=== PATIENT | male | born 1940 | race Two or more races ===

== ENCOUNTER 2017-07-16 15:54 | Inpatient (IN) | payer MEDICARE, BC ==
[~2017-07-16] VITALS: Ht 172.7 cm; Wt 89.4 kg
[2017-07-16] MEDS ORDERED: methylPREDNISolone SOD SUCC 125 MG/2ML VIAL ONE (16:14)
[2017-07-16] MEDS ORDERED: ALBUTEROL FS 2.5 MG/3 ML VIAL.NEB ONE (16:15)
[2017-07-16] MEDS ORDERED: IPRATROPIUM NEB FS 0.5 MG/2.5 ML AMPUL.NEB ONE (16:15)
--- NOTE | 2017-07-16 16:23 | NUR ---
BBRA FROM HOME FOR ASTHMA EXACERBATION AND ALTERED PER REPORT. PATIENT RECEIVED AAO4. APPEARS IN NO APPARENT DISTRESS. RESPIRATION EVEN AND UNLABORED, SKIN IS WARM TO TOUCH AND NON DIAPHORETIC. AFEBRILE. VSS
[2017-07-16 16:26] LABS: BASOPHILS # (AUTO) 0.1 /CMM (0.0-0.2); BASOPHILS % (AUTO) 0.5 % (0.0-2.0); EOSINOPHILS % (AUTO) 0.1 % (0.0-6.0); HEMATOCRIT 47 % (39-51); HEMOGLOBIN 15.8 g/dL (13.5-17.5); LYMPHOCYTES # (AUTO) 0.7 /CMM (0.8-4.8); LYMPHOCYTES % (AUTO) 2.5 % (20.0-44.0); MEAN CORPUSCULAR HEMOGLOBIN 27 PG (26.0-33.0); MEAN CORPUSCULAR HGB CONC 34 g/dl (31.0-36.0); MEAN CORPUSCULAR VOLUME 80 fL (80-96); MONOCYTES # (AUTO) 1.8 /CMM (0.1-1.30); MONOCYTES % (AUTO) 6.5 % (2.0-12.0); NEUTROPHILS # (AUTO) 25.6 /CMM (1.8-8.9); NEUTROPHILS % (AUTO) 90.4 % (43.0-81.0); PLATELET COUNT (AUTO) 239 /CMM (150-450); RDW COEFFICIENT OF VARIATION 13.6 (11.5-15.0); RED BLOOD CELL COUNT(AUTO) 5.85 MIL/uL (4.5-6.0); WHITE BLOOD COUNT (AUTO) 28.2 K/uL (4.3-11.0)
[2017-07-16] MEDS ORDERED: methylPREDNISolone SOD SUCC 125 MG/2ML VIAL IV ONE (16:30)
[2017-07-16] MEDS ORDERED: IPRATROPIUM NEB FS 0.5 MG/2.5 ML AMPUL.NEB NEB ONE (16:30)
[2017-07-16] MEDS ORDERED: ALBUTEROL FS 2.5 MG/3 ML VIAL.NEB NEB ONE (16:30)
[2017-07-16 16:38] LABS: CALCIUM, SERUM 8.8 mg/dL (8.5-10.1); CARBON DIOXIDE 24 mmol/L (21-32); CHLORIDE 101 mmol/L (98-107); CREATININE 1.4 mg/dL (0.6-1.3); GLUCOSE 103 mg/dL (74-106); POTASSIUM 3.4 mmol/L (3.5-5.1); SODIUM SERUM 136 mmol/L (136-145); UREA NITROGEN, BLOOD 16 mg/dL (7-18)
[2017-07-16 16:45] LABS: TROPONIN I < 0.017 ng/mL (0.00-0.056)
[2017-07-16] MEDS ORDERED: ALBU8.5H8 INH (16:49)
[2017-07-16] MEDS ORDERED: MONT10TA22 PO (16:49)
[2017-07-16] MEDS ORDERED: FLUT1DIS3 IH (16:49)
[2017-07-16 16:53] LABS: ALANINE AMINOTRANSFERASE 21 U/L (12-78); ALBUMIN 3.9 g/dL (3.4-5.0); ALKALINE PHOSPHATASE 99 U/L (46-116); ASPARTATE AMINOTRANSFERASE 18 U/L (15-37); B-TYPE NATRIURETIC PEPTIDE 220 PG/ML (0-125); BILIRUBIN,DIRECT 0.1 mg/dL (0.0-0.2); BILIRUBIN,TOTAL 0.9 mg/dL (0.2-1.0); TOTAL PROTEIN, SERUM 6.8 g/dL (6.4-8.2)
--- NOTE | 2017-07-16 16:57 | NUR ---
TELE [id number]
[2017-07-16] MEDS ORDERED: LEVOFLOXACIN 750 MG /D5W 150ML 150 ML IV ONE ×2 (17:00→17:08)
[2017-07-16 17:25] LABS: APPEARANCE,URINE Clear (CLEAR); BILIRUBIN,URINE Negative (NEGATIVE); BLOOD, URINE Negative Ery/uL (NEGATIVE); COLOR,URINE Yellow (YELLOW); KETONES,URINE Negative (NEGATIVE); LEUKOCYTE ESTERASE ,URINE Negative (NEGATIVE); NITRITE, URINE Negative (NEGATIVE); PH,URINE 5.5 (5.0-8.0); PROTEIN,URINE Negative (NEGATIVE); UGLUCOSE Negative (NEGATIVE); UROBILINOGEN,URINE 0.2 EU/dL (0.2)
--- NOTE | 2017-07-16 17:45 | NUR ---
REPORT GIVEN TO PAYAL CASAREZ FOR DULCE
--- NOTE | 2017-07-16 17:47 | NUR ---
PT TRANSPORTED TO [facility]
[2017-07-16] MEDS ORDERED: MAG HYDROX/AL HYDROX/SIMETH 30 ML UDC PO PRN (18:30)
[2017-07-16] MEDS ORDERED: Z GUARD REMEDY 2 OZ OINT TP PRN (18:30)
[2017-07-16] MEDS ORDERED: ZOLPIDEM TARTRATE 5 MG TABLET PO PRN (18:30)
[2017-07-16] MEDS ORDERED: ACETAMINOPHEN 325 MG TABLET PO PRN (18:30)
[2017-07-16] MEDS ORDERED: MAGNESIUM HYDROXIDE 30 ML UDC PO PRN (18:30)
[2017-07-16] MEDS ORDERED: ONDANSETRON HCL/PF 4 MG/2 ML VIAL IVP PRN (18:30)
[2017-07-16] MEDS ORDERED: HYDROCODONE/APAP 5/325MG 1 EACH TABLET PO PRN (18:30)
--- NOTE | 2017-07-16 18:42 | NUR ---
CRISIS WORKER OPENING NOTES. PT ENDORSED WITH CC OF ASTHMA EXACERBATION. PT RECEIVED A&0X3. PT REPORTING NO PAIN. PT WITH IVC AT R AC G#20, LEVOFLOXACIN RUNNING. PT VITALS 107/60, HR 96, TEMP.98.0f, AND SAO2 93%. PT COMMENCED ON O2 VIA NC AT 3LPM. NOTES STATE SEPSIS, NO FLUIDS INITIATED OR ORDERED, MD NOTIFIED. MD TO RV PT. WILL ENDORSE TO NIGHT NURSE.
[2017-07-16] MEDS ORDERED: POTASSIUM CHLORIDE 20 MEQ TAB.PRT.SR PO ONE ×2 (19:00→20:04)
[2017-07-16 19:24] LABS: ALBUMIN 3.6 g/dL (3.4-5.0); BILIRUBIN,DIRECT 0.1 mg/dL (0.0-0.2); BILIRUBIN,TOTAL 0.9 mg/dL (0.2-1.0); TOTAL PROTEIN, SERUM 6.5 g/dL (6.4-8.2)
--- NOTE | 2017-07-16 19:40 | NUR ---
PAPER BOX CUTTER INITIAL NOTES PT IS LAYING IN BED, A/O X3 ABLE TO MAKE NEEDS KNOWN, STEADY GATE. BREATHING EVENLY AND UNLABORED ON 3L NC, NO SIGNS OF SOB OR DISTRESS. DENIES PAIN. HOPI USES HEARING AIDS, WILL BE SENDING THE HEARING AIDS HOME WITH HIS . TELE MONITOR SHOWS SR 80S WITH 1ST DEGREE AV BLOCK. PT IS CURRENTLY A FULL CODE BUT HAS DIRECTIVES FOR DNR, TO BRING IN THE DOCUMENTATION. BED IS IN LOW AND LOCKED POSITION, CALL LIGHT WITHIN REACH. WILL CONTINUE TO MONITOR PT
[2017-07-16 20:00] VITALS: BP 101/62
--- NOTE | 2017-07-16 21:10 | NUR ---
NEURODIAGNOSTIC TECH NOTES CONTACTED [facility] FOR CLARIFICATION ON SEPSIS ORDER SINCE NO FLUIDS WERE GIVEN IN ER. GENERAL ACTIVITIES THERAPIST KATHRYN DE LEON STATED TO GIVE ONE BOLUS OVER 4HRS AND DO NOTHING ELSE. WILL CONTINUE TO MONITOR PT
[2017-07-16] MEDS ORDERED: IV NS 0.9% 1,000 ML IV ONE (21:30)
[2017-07-16] MEDS: ALBUTEROL FS 2.5 MG/3 ML VIAL.NEB NEB SCH (22:22)
[2017-07-16] MEDS: IPRATROPIUM NEB FS 0.5 MG/2.5 ML AMPUL.NEB NEB SCH ×2 (22:22→23:30)
--- NOTE | 2017-07-16 23:00 | NUR ---
CONTENT ANALYST NOTES PT HAS HIS OWN CPAP MACHINE FROM HOME. PT STATES HE CAN APPLY IT HIMSELF AND DOESN'T WANT BREATHING TX DURING THE NIGHT
[2017-07-17] VITALS (7 sets, daily range): BP systolic 99–123; BP diastolic 58–68
[2017-07-17] MEDS: ALBUTEROL FS 2.5 MG/3 ML VIAL.NEB NEB SCH ×6 (01:00→22:35)
[2017-07-17] MEDS: IPRATROPIUM NEB FS 0.5 MG/2.5 ML AMPUL.NEB NEB SCH ×6 (03:30→22:34)
--- NOTE | 2017-07-17 06:29 | NUR ---
RECREATIONAL SPECIALIST CLOSING NOTES PT IS IN BED RESTING, A/O X3. NO SIGNS OF SOB OR DISTRESS. BREATHING EVENLY AND UNLABORED ON NC 3L. TELE MONITOR SHOWS SR 74 WITH PVC AND 1ST DEGREE AV BLOCK. ALL NEEDS WERE ANTICIPATED AND MET. BED IS IN LOW AND LOCKED POSITION, CALL LIGHT WITHIN REACH. WILL ENDORSE TO DAYSHIFT
[2017-07-17 07:03] LABS: HEMATOCRIT 44 % (39-51); HEMOGLOBIN 14.2 g/dL (13.5-17.5); LYMPHOCYTES # (AUTO) 0.7 /CMM (0.8-4.8); LYMPHOCYTES % (AUTO) 2.4 % (20.0-44.0); MEAN CORPUSCULAR HEMOGLOBIN 27 PG (26.0-33.0); MEAN CORPUSCULAR HGB CONC 33 g/dl (31.0-36.0); MEAN CORPUSCULAR VOLUME 82 fL (80-96); MONOCYTES # (AUTO) 0.8 /CMM (0.1-1.30); MONOCYTES % (AUTO) 2.5 % (2.0-12.0); NEUTROPHILS # (AUTO) 29.4 /CMM (1.8-8.9); NEUTROPHILS % (AUTO) 95.1 % (43.0-81.0); PLATELET COUNT (AUTO) 226 /CMM (150-450); RDW COEFFICIENT OF VARIATION 14.6 (11.5-15.0); RED BLOOD CELL COUNT(AUTO) 5.32 MIL/uL (4.5-6.0)
[2017-07-17 07:25] LABS: WHITE BLOOD COUNT (AUTO) 30.9 K/uL (4.3-11.0)
--- NOTE | 2017-07-17 07:30 | NUR ---
Tele/RN Patient Received The patient received in bed awake and in stable condition. Respiration regular and unlabored. Denies SOB at this time. Denies pain at this time. Call light within reach, bed in low position, side rail x3 in upright position. Will continue monitoring.
[2017-07-17 07:49] LABS: CALCIUM, SERUM 9.3 mg/dL (8.5-10.1); CARBON DIOXIDE 25 mmol/L (21-32); CHLORIDE 107 mmol/L (98-107); CREATININE 1.3 mg/dL (0.6-1.3); GLUCOSE 131 mg/dL (74-106); MAGNESIUM 2.2 mg/dL (1.8-2.4); PHOSPHORUS 2.7 mg/dL (2.5-4.9); POTASSIUM 4.8 mmol/L (3.5-5.1); SODIUM SERUM 143 mmol/L (136-145); UREA NITROGEN, BLOOD 19 mg/dL (7-18)
[2017-07-17 08:04] LABS: CHOLESTEROL 138 mg/dL (<200); HDL CHOLESTEROL 85 mg/dL (40-60); LDL 51 mg/dL (0-99); TRIGLYCERIDES 18 mg/dL (30-150)
--- NOTE | 2017-07-17 09:00 | NUR ---
TELE/RN Called Pharm Solu-Medrol not administered at 9:00 AM due to it was not delivered to [facility] [facility] [facility].
[2017-07-17 09:13] LABS: BAND % (MANUAL) 8 % (0.0-5.0); LYMPHOCYTES % (MANUAL) 4 % (16-48); MONOCYTES % (MANUAL) 3 % (0-11.0); NEUTROPHILS % (MANUAL) 85 (42-76)
--- NOTE | 2017-07-17 10:05 | NUR ---
TELE/RN Called Pharm Called pharm to follow to [facility]. Per pharm will be delivered.
[2017-07-17] MEDS ORDERED: FEE PK DOSING 1 MIN EA MC ONE (10:55)
[2017-07-17] MEDS: methylPREDNISolone SOD SUCC 40 MG/ML VIAL IV SCH ×3 (11:16→18:58)
--- NOTE | 2017-07-17 11:16 | NUR ---
TELE/RN Solu-Medrol given Pharm delivered Solu-Medrol and med administered. No ASE noted.
--- NOTE | 2017-07-17 11:30 | NUR ---
MS/RN MD visit The patient was seen by Dr Rashid with new orders of Gi and Lui.
[2017-07-17] MEDS: VANCOMYCIN 1 GM in IV D5W 250 ML IV SCH (11:32)
[2017-07-17] MEDS: IV NS 0.9% 1,000 ML BAG IV SCH (11:32)
[2017-07-17] MEDS ORDERED: MEROPENEM 1 G in IV NS 0.9% 100 ML IV SCH (13:00)
[2017-07-17] MEDS: MEROPENEM 1 G in IV NS 0.9% 100 ML IV SCH ×2 (14:19→23:01)
--- NOTE | 2017-07-17 16:25 | NUR ---
MS/RN [facility] DIRECTIVE PATIENT`S (EMIGDIO) BROUGHT [facility]. COPY MADE, PLACED IN PATIENT`S CHART AND THE ORIGINAL RETURNED TO THE . THE PATIENT AWARE.
--- NOTE | 2017-07-17 18:07 | NUR ---
MS/RN CLOSING NOTE PATIENT AWAKE AND IN BED. RESPIRATION REGULAR AND UNLABORED. DENIES PAIN, DENIES SOB AT THIS TIME. IN STABLE CONDITION. ALL NEEDS ATTENDED. BED IN LOW POSITION, LOCKED. CALL LIGHT WITHIN REACH. WILL ENDORSE TO JOINT CUTTER.
--- NOTE | 2017-07-17 19:45 | NUR ---
MS RN INITIAL NOTES PT IS IN BED AWAKE AND ALERT, ABLE TO MAKE NEEDS KNOWN. NO SIGNS OF SOB OR DISTRESS, BREATHING EVENLY AND UNLABORED ON RA. IV ACCESS WAS LEAKING, NEW IV INSERTED ON LEFT ARM, NS INFUSING. DENIES PAIN. BED IS IN LOW AND LOCKED POSITION, CALL LIGHT WITHIN REACH. WILL CONTINUE TO MONITOR PT.
[2017-07-18] MEDS: ALBUTEROL FS 2.5 MG/3 ML VIAL.NEB NEB SCH ×2 (03:30→08:43)
[2017-07-18] MEDS: IPRATROPIUM NEB FS 0.5 MG/2.5 ML AMPUL.NEB NEB SCH ×2 (03:30→08:43)
[2017-07-18] MEDS: VANCOMYCIN 1 GM in IV D5W 250 ML IV SCH (04:04)
--- NOTE | 2017-07-18 06:40 | NUR ---
MS RN CLOSING NOTES PT IS IN BED RESTING A/O X3 ABLE TO MAKE NEEDS KNOWN. BREATHING EVENLY AND UNLABORED ON RA, NO SIGNS OF SOB OR DISTRESS. PT BM DOESN'T QUALIFY FOR C DIFF SAMPLE. NO ACUTE CHANGES THROUGHOUT THE SHIFT. BED IS IN LOW AND LOCKED POSITION, CALL LIGHT WITHIN REACH. WILL ENDORSE TO DAY SHIFT
[2017-07-18 07:14] LABS: HEMATOCRIT 40 % (39-51); LYMPHOCYTES # (AUTO) 0.7 /CMM (0.8-4.8); LYMPHOCYTES % (AUTO) 3.3 % (20.0-44.0); MEAN CORPUSCULAR HEMOGLOBIN 27 PG (26.0-33.0); MEAN CORPUSCULAR HGB CONC 33 g/dl (31.0-36.0); MEAN CORPUSCULAR VOLUME 82 fL (80-96); MONOCYTES # (AUTO) 0.8 /CMM (0.1-1.30); MONOCYTES % (AUTO) 3.8 % (2.0-12.0); NEUTROPHILS # (AUTO) 19.1 /CMM (1.8-8.9); NEUTROPHILS % (AUTO) 92.9 % (43.0-81.0); PLATELET COUNT (AUTO) 222 /CMM (150-450); RDW COEFFICIENT OF VARIATION 15.3 (11.5-15.0); RED BLOOD CELL COUNT(AUTO) 4.86 MIL/uL (4.5-6.0); WHITE BLOOD COUNT (AUTO) 20.6 K/uL (4.3-11.0)
[2017-07-18 07:28] LABS: CALCIUM, SERUM 8.9 mg/dL (8.5-10.1); CARBON DIOXIDE 22 mmol/L (21-32); CHLORIDE 108 mmol/L (98-107); GLUCOSE 128 mg/dL (74-106); POTASSIUM 4.1 mmol/L (3.5-5.1); SODIUM SERUM 140 mmol/L (136-145); UREA NITROGEN, BLOOD 25 mg/dL (7-18)
--- NOTE | 2017-07-18 07:30 | NUR ---
MS/RN PATIENT RECEIVED PATIENT RECEIVED FROM SALES REPRESENTATIVE [employer]. RESPIRATION REGULAR AND UNLABORED. DENIES SOB, DENIES PAIN AT THIS TIME. IN STABLE CONDITION. CALL LIGHT WITHIN REACH, BED IN LOW SETTING, LOCKED AND SIDE RAIL X3 IN UPRIGHT POSITION. WILL CONTINUE TO MONITOR.
[2017-07-18 08:00] VITALS: BP 126/69
--- NOTE | 2017-07-18 09:00 | NUR ---
MS/RN MEDS GIVEN MORNING MEDICATIONS GIVEN A ORDERED. NO ASE NOTED. PATIENT IN STABLE CONDITION.
[2017-07-18] MEDS: methylPREDNISolone SOD SUCC 40 MG/ML VIAL IV SCH (09:33)
[2017-07-18] MEDS: IV NS 0.9% 1,000 ML BAG IV SCH (09:36)
[2017-07-18] MEDS ORDERED: METH4TAB16 PO (10:43)
[2017-07-18] MEDS ORDERED: LEVO500T75 PO (10:43)
--- NOTE | 2017-07-18 11:00 | NUR ---
MS/RN Labs Labs reviewed: -WBC 20.9
--- NOTE | 2017-07-18 12:00 | NUR ---
MS/RN S/B Ira Paz NP Seen by MANUAL TRAINING TEACHER -to be discharged to home today with prescription for medrol dose pack and levaquin. Needs to follow up in 5-10 days with animal shelter supervisor for reevaluation of CHF.
--- NOTE | 2017-07-18 13:00 | NUR ---
MS/supply chain assistant Patient discharged to home in stable condition. All personal belongings signed for on belongings list. Heplock and name bands removed. Education provided to patient regarding signs and symptoms and when to return to the nearest emergency room, including any chest pain, any shortness of breath not relieved by rest. Education understood per patient and . Copies of signed exit care and medical record provided to patient. New prescription for levaquin and medrol dose beatriz given to patient. Escorted to main door by RN.
== END 2017-07-18 12:00 | disposition home or self-care (01) | DRG 871 ==
LOC: ER 15:57 → TELE 18:09 → MED 07-17 10:03
PROVIDERS: ADMIT Family Medicine; ATTEND Family Medicine
DX: A41.9 Sepsis, unspecified organism (principal); N17.0 Acute kidney failure with tubular necrosis; G93.41 Metabolic encephalopathy; I50.33 Acute on chronic diastolic (congestive) heart failure; J45.901 Unspecified asthma with (acute) exacerbation; E87.6 Hypokalemia; Z87.891 Personal history of nicotine dependence; D72.828 Other elevated white blood cell count; E86.0 Dehydration; Z88.0 Allergy status to penicillin
CPT/HCPCS: 36415; 71010-TC; 80048-TC; 80061-TC; 80076-TC; 81000-TC; 83605-TC; 83735-TC; 83880; 84100-TC; 84484-TC; 85025-TC; 87040-TC; 87081-TC; 87086-TC; 87400; 93307-TC; A4606; J1956; J2185; J2920; J2930; J3370; J7030; J7060; Z7610

== ENCOUNTER 2019-07-23 06:51 | Emergency (ER) | payer MEDICARE, BC ==
[~2019-07-23] VITALS: Ht 177.8 cm; Wt 83.9 kg
[~2019-07-23 06:51] MED LIST: ALBU8.5H8 INH; FLUT1DIS3 IH; LEVO500T75 PO; METH4TAB16 PO; MONT10TA22 PO
--- NOTE | 2019-07-23 07:11 | NUR ---
BIBFAMILY FROM HOME TO ER EBD 12. AAOX4. NO REPS DISTRESS NOTED, BREATHING EVEN AND UNLABORED. C/O R ANKLE BLEEDING. PER PT, HE WOKE UP THIS MORNING BLEEDING FROM HIS R ANKLE. PT STATES THAT THIS IS THE 2ND TIME IT HAPPENED. UPON ASSESSMENT, NO NOTED ACTIVE BLEEDING NOTED FROM R MEDIAL ANKLE WHICH IS COVERED W/ A BAND AID. PT DENIES USING ANY BLOOD THINNER. AWAITING MD FOR EVAL.
--- NOTE | 2019-07-23 07:25 | NUR ---
PT ENDORSED TO PAYAL FIGUEROA
[2019-07-23 07:45] LABS: BASOPHILS # (AUTO) 0.3 /CMM (0.0-0.2); EOSINOPHILS % (AUTO) 4.1 % (0.0-6.0); HEMATOCRIT 42 % (39-51); HEMOGLOBIN 13.7 g/dL (13.5-17.5); LYMPHOCYTES # (AUTO) 0.7 /CMM (0.8-4.8); LYMPHOCYTES % (AUTO) 11.9 % (20.0-44.0); MEAN CORPUSCULAR HGB CONC 33 g/dl (31.0-36.0); MEAN CORPUSCULAR VOLUME 82 fL (80-96); MONOCYTES # (AUTO) 0.5 /CMM (0.1-1.30); MONOCYTES % (AUTO) 8.8 % (2.0-12.0); NEUTROPHILS # (AUTO) 4.4 /CMM (1.8-8.9); NEUTROPHILS % (AUTO) 70.1 % (43.0-81.0); PLATELET COUNT (AUTO) 232 /CMM (150-450); RED BLOOD CELL COUNT(AUTO) 5.08 MIL/uL (4.5-6.0); WHITE BLOOD COUNT (AUTO) 6.2 K/uL (4.3-11.0)
[2019-07-23 07:47] LABS: BASOPHILS % (AUTO) 5.1 % (0.0-2.0)
[2019-07-23 08:06] VITALS: BP 129/81
--- NOTE | 2019-07-23 08:07 | NUR ---
Patient discharged to home in stable condition. Written and verbal after care instructions given. Patient verbalizes understanding of instruction.
== END 2019-07-23 08:06 | disposition home or self-care (01) ==
LOC: ER 06:52
DX: I83.891 Varicose veins of right lower extremity with other complications (principal); J45.909 Unspecified asthma, uncomplicated; Z88.0 Allergy status to penicillin; Z88.2 Allergy status to sulfonamides; Z79.899 Other long term (current) drug therapy
CPT/HCPCS: 36415; 85025-TC